=== PATIENT | male | born 1935 | race Caucasian/White ===

== ENCOUNTER 2022-02-25 13:49 | Emergency (ER) | payer MEDICARE, BC, SELFPAY ==
[2022-02-25 14:00] VITALS: BP 112/59; PULSE 83; O2SAT 92
[2022-02-25 14:19] VITALS: BP 120/62; PULSE 77; RESP 18; TEMP 36.8; O2SAT 93; BMI 23.7
--- NOTE | 2022-02-25 14:27 | CRLHL7_ITS ---
For Patients: As a result of the Cures Act, medical imaging exams and procedure reports are released immediately into your electronic medical record. You may view this report before your referring provider. If you have questions, please contact your health care provider. INDICATION: Cough TECHNIQUE: Chest 1 view COMPARISON: None FINDINGS: Cardiac silhouette is enlarged with left-sided arch and prominence of the right atrium, part of which may be due to partial rotation. Calcified densities in both thoraces may represent calcified granulomas or calcified pleural plaques. Focal density in the right lateral midlung zone. Degenerative changes. No pneumothorax or pleural effusion. IMPRESSION: Focal opacity in the right midlung zone may represent infiltrate. Dictated by Mariusz Andre MD @ 02/25/2022 3:03:44 PM (Electronically Signed)
--- NOTE | 2022-02-25 14:29 | ED.GENADULT ---
HPI - General Adult General Chief complaint: Cough Stated complaint: Cough Time Seen by Provider: 02/25/22 13:52 History of Present Illness HPI narrative: This 86-year-old male comes in with a cough for the past week. When I began to interview him he points to his who states that she can answer the questions kids he does not like to talk. I did get him to answer some questions regarding his symptoms but he frequently pointed to her. She states that he is coughing sometimes nonstop and this occurs especially at night. He does not report any shortness of breath. He arrives with oximetry at 93% on room air. He does not report any fevers. Related Data Home Medications Medication Instructions Recorded Confirmed allopurinol 300 mg tablet 150 mg PO DAILY 02/25/22 02/25/22 atorvastatin 40 mg tablet 40 mg PO DAILY 02/25/22 02/25/22 carvedilol 12.5 mg tablet 12.5 mg PO BID 02/25/22 02/25/22 edoxaban 30 mg tablet 30 mg PO DAILY 02/25/22 02/25/22 ferrous sulfate 325 mg (65 mg 325 mg PO DAILY 02/25/22 02/25/22 iron) tablet,delayed release hydralazine 25 mg tablet 25 mg PO TID 02/25/22 02/25/22 isosorbide dinitrate 20 mg tablet 10 mg PO TID 02/25/22 02/25/22 omeprazole 20 mg capsule,delayed 20 mg PO DAILY 02/25/22 02/25/22 release torsemide 40 mg tablet 40 mg PO BID 02/25/22 02/25/22 Previous Rx's Medication Instructions Recorded acetaminophen 300 mg-codeine 30 mg 1 tab PO Q6H PRN #14 tab 02/25/22 tablet levofloxacin 500 mg tablet 500 mg PO DAILY #20 tab 02/25/22 Allergies Allergy/AdvReac Type Severity Reaction Status Date / Time No Known Drug Allergies Allergy Verified 02/25/22 14:19 Review of Systems Status of ROS: Reports: 10 or more systems reviewed and unremarkable except as noted in History and below Narrative: Constitutional: No fevers, no weight gain or loss. Eyes: No discharge. No vision changes. HENT: No congestion, no sore throat, no ear pain. Cardiovascular: No chest pain, no palpitations. Respiratory: No shortness of breath, no wheezes. He reports coughing. Gastrointestinal: No abdominal pain, no vomiting, no diarrhea. Genitourinary: No dysuria, no hematuria. Musculoskeletal: Normal range of motion. Skin: No rashes, no pruritis. Neurological: No dizziness, weakness, sensory change, speech change. Endo/Heme/Allergies: No bruising or bleeding. No polydipsia. Pysch: no suicidality, no anxiety, no insomnia. All other systems reviewed and are negative. Exam Narrative: Exam Narrative: Constitutional: Well-developed, well-nourished, no acute distress. HEENT: Normocephalic, atraumatic. Neck: Normal range of motion. Nontender. Supple. Heart: Regular. No murmurs. Normal rate. Intact distal pulses. Lungs: Rhonchi auscultated bilaterally, right greater than left. No wheezes. Abdomen: Normal bowel sounds. Nontender. No rebound tenderness. Genitalia: Deferred. Back: No midline tenderness. Normal range of motion. Extremities: Normal range of motion. No injury. Skin: Intact. No rash. Warm. No erythema or pallor. Neurologic: No altered sensation. No weakness. Alert and oriented. Psychiatric: No suicidality. No anxiety or depression. No insomnia. Nursing notes and vitals signs are reviewed. Const: Vital Signs, click to edit/add: Vital Signs - 24 hr 02/25/22 14:00 02/25/22 14:19 02/25/22 14:30 Temperature 98.2 F Pulse Rate [Right Pulse Oximeter] 83 77 70 Respiratory Rate 18 Blood Pressure [Ri ght Upper Arm] 112/59 L 120/62 108/57 L Pulse Oximetry 92 93 91 02/25/22 15:00 Temperature Pulse Rate [Right Pulse Oximeter] 70 Respiratory Rate Blood Pressure [Ri ght Upper Arm] 126/68 Pulse Oximetry 93 Course Vital Signs Vital signs: Initial Vital Signs Pulse Rate 83 02/25/22 14:00 Blood Pressure 112/59 L 02/25/22 14:00 Blood Pressure Mean 76 02/25/22 14:00 Blood Pressure Position Supine 02/25/22 14:00 Pulse Oximetry 92 02/25/22 14:00 Oxygen Delivery Method 02/25/22 14:00 Vital Signs Pulse Rate 83 02/25/22 14:00 Blood Pressure 112/59 L 02/25/22 14:00 Pulse Oximetry 92 02/25/22 14:00 Temperature 98.2 F 02/25/22 14:19 Pulse Rate 70 02/25/22 15:00 Respiratory Rate 18 02/25/22 14:19 Blood Pressure 126/68 02/25/22 15:00 Pulse Oximetry 93 02/25/22 15:00 Medical Decision Making MDM Narrative Medical decision making narrative: This patient comes in because of coughing for the past week. His states that he coughs incessantly at night. He does not describe any fevers. A chest x-ray is done which does show sign of infiltrate in the right mid lung. This would correlate when auscultating his chest as there seems to be less air flow on the right side. The patient is maintaining sufficient vital signs and has oximetry ease with room air at the low 90s%. He prefers to return home and should do okay with this plan a but is instructed to return if becoming more short of breath. He did receive a prescription for Levaquin and some tablets of Tylenol 3. Lab Data Labs: Lab Results 02/25/22 02/25/22 02/25/22 Range/Units 14:40 14:47 14:47 WBC 12.57 H (4.50-11.00) K/uL RBC 3.97 L (4.30-5.90) m/uL Hgb 11.0 L (13.5-17.5) gm/dL Hct 34.7 L (37.0-53.0) % MCV 87 (80-100) fL MCH 28 (26-34) pg MCHC 32 (32-36) gm/dL RDW Coeff of Phoebe 15.3 (11.5-15.5) % Plt Count 284 (140-440) K/uL Neut % (Auto) 87.2 H (42.0-72.0) % Lymph % (Auto) 6.0 L (20-44) % Haralson % (Auto) 4.3 (0.0-11.0) % Eos % (Auto) 0.4 (0.0-7.0) % Baso % (Auto) 0.2 (0.0-3.0) % Neut # (Auto) 11.00 H (1.7-7.0) K/uL Lymph # (Auto) 0.80 L (0.90-2.90) K/uL Haralson # (Auto) 0.50 (0.00-0.90) K/UL Eos # (Auto) 0.10 (0.00-0.50) K/uL Baso # (Auto) 0.00 (0.00-0.30) K/uL Abs Immat Gran (auto) 0.24 (0.00-0.30) K/uL Sodium 139 (135-149) mmol/L Potassium 3.2 L (3.6-5.1) mmol/L Chloride 103 (96-114) mmol/L Carbon Dioxide 30 (20-32) mmol/L BUN 55 H (7-30) mg/dL Creatinine 1.6 H (0.5-1.5) mg/dL Estimated Creat Clear 35.95 Estimated GFR 42 ml/min Glucose 203 H (60-115) mg/dL Calcium 8.9 (8.4-10.6) mg/dL SARS-CoV-2 (PCR) Negative SARS-CoV-2 (Negative) Influenza Type A (PCR) Negative PCR FLU A (Negative) Influenza Type B (PCR) Negative PCR FLU B (Negative) Imaging Data Chest x-ray: Radiologist's impression: Focal opacity in the right midlung zone may represent infiltrate. Discharge Plan Discharge Clinical Impression: Pneumonia Patient Disposition: Home, Self-Care Condition: Unchanged Instructions: Community Acquired Pneumonia (ED) Additional Instructions: Take medication as prescribed and needed. Follow up with MD or return if worsening, especially if becoming short of breath. Prescriptions: New levofloxacin 500 mg tablet 500 mg PO DAILY Qty: 20 0RF acetaminophen-codeine 300-30 mg tablet 1 tab PO Q6H PRN (Reason: cough) Qty: 14 0RF No Action ferrous sulfate 325 mg (65 mg iron) tablet,delayed release (DR/EC) 325 mg PO DAILY 0RF torsemide 40 mg tablet 40 mg PO BID 0RF atorvastatin 40 mg tablet 40 mg PO DAILY 0RF omeprazole 20 mg capsule,delayed release(DR/EC) 20 mg PO DAILY 0RF allopurinol 300 mg tablet 150 mg PO DAILY 0RF carvedilol 12.5 mg tablet 12.5 mg PO BID 0RF Rx Instructions: must administer with a meal/food edoxaban 30 mg tablet 30 mg PO DAILY 0RF isosorbide dinitrate 20 mg tablet 10 mg PO TID 0RF Rx Instructions: allow nitrate-free interval of 12-14 hrs per 24-hr period hydralazine 25 mg tablet 25 mg PO TID 0RF Follow Up/Referrals: Fermin Gray MD [Primary Care Provider] - Stand Alone Forms: MyHealth Info Instructions
[2022-02-25 14:30] VITALS: BP 108/57; PULSE 70; O2SAT 91
[2022-02-25 15:00] VITALS: BP 126/68; PULSE 70; O2SAT 93
[2022-02-25 15:05] LABS: Basophils Percent Auto 0.2 % (0.0-3.0); Eosinophils Percent Auto 0.4 % (0.0-7.0); Hematocrit 34.7 % (37.0-53.0); Immature Granulocytes Abs Auto 0.24 K/uL (0.00-0.30); Mean Corpuscular HGB Conc 32 gm/dL (32-36); Mean Corpuscular Hemoglobin 28 pg (26-34); Mean Corpuscular Volume 87 fL (80-100); Monocytes Percent Auto 4.3 % (0.0-11.0); Neutrophils Percent Auto 87.2 % (42.0-72.0); Platelet Count* 284 K/uL (140-440); RDW Coefficient of Variation % 15.3 % (11.5-15.5); Red Blood Count 3.97 m/uL (4.30-5.90); White Blood Count* 12.57 K/uL (4.50-11.00)
[2022-02-25 15:07] LABS: Slide Review Reflex No
[2022-02-25 15:10] LABS: Chloride* 103 mmol/L (96-114); Potassium* 3.2 mmol/L (3.6-5.1); Sodium* 139 mmol/L (135-149)
[2022-02-25 15:13] LABS: Blood Urea Nitrogen* 55 mg/dL (7-30); Carbon Dioxide* 30 mmol/L (20-32); Creatinine* 1.6 mg/dL (0.5-1.5); Est. Creatinine Clearance* 35.95; Estimated Glomerular Filt Rate 42 ml/min; Glucose* 203 mg/dL (60-115)
[2022-02-25 15:14] LABS: Calcium* 8.9 mg/dL (8.4-10.6)
[2022-02-25 15:28] LABS: PCR FLU A Negative PCR FLU A (Negative); PCR FLU B Negative PCR FLU B (Negative)
[2022-02-25 15:30] VITALS: BP 136/82; PULSE 70; O2SAT 93
[2022-02-25 15:34] LABS: SARS PCR* Negative SARS-CoV-2 (Negative)
== END 2022-02-25 16:07 | disposition home or self-care (01) ==
PROVIDERS: Emergency Provider Emergency Medicine Emergency Medical Services; PCP Family Medicine
DX: J18.9 Pneumonia, unspecified organism (principal)
CPT/HCPCS: 36415; 71045; 80048; 85025; 87502; 87635; 99284

== ENCOUNTER 2022-12-28 18:58 | Outpatient (CLI) | payer MEDICARE, BC, SELFPAY | END 2022-12-28 18:59 | disposition home or self-care (01) | LOC: AMB 01-10 13:54 | PROVIDERS: PCP Family Medicine; Visit Provider Family Medicine | DX: R06.09 Other forms of dyspnea (principal); J18.9 Pneumonia, unspecified organism; A41.9 Sepsis, unspecified organism | CPT/HCPCS: A0425; A0434 ==